=== PATIENT | female | born 1945 | race Caucasian/White ===

== ENCOUNTER 2021-04-12 18:14 | Emergency (ER) | payer MEDICARE, OTHER ==
[2021-04-12] MEDS ORDERED: DEBROX15 ML AU (21:20)
== END 2021-04-12 22:00 | disposition home or self-care (01) ==
LOC: ER1 18:14
DX: H61.23 Impacted cerumen, bilateral (principal); I10 Essential (primary) hypertension; G40.909 Epilepsy, unspecified, not intractable, without status epilepticus; Z88.8 Allergy status to other drugs, medicaments and biological substances; F84.0 Autistic disorder
CPT/HCPCS: 81001; 99283